=== PATIENT | female | born 1950 | race Caucasian/White ===

== ENCOUNTER → 2021-01-15 | Outpatient (CLI) | payer MEDICARE, OTHER ==
[~2021-01-15] MED LIST: ALBUTEROL1.25 MG/3 INH; CALCIUM 600 +1 EAC4 PO; CLONIDINE HCL0.3 MG PO; COZAAR100 MG PO; CRESTOR10 MG PO; FEXOFENADINE H180 MG PO; GLIPIZIDE5 MG PO; HYDROCODON-ACE1 EAC6 PO; JENTADUETO 2.51 EACH PO; LOPRESSOR50 MG PO; LYRICA150 MG PO; MECLIZINE HCL25 MG PO; NORVASC5 MG PO; PROTONIX40 MG PO; ROPINIROLE HCL1 MG PO; SEROQUEL50 MG PO; STOOL SOFTENER250 MG PO; SUCRALFATE1 GM PO; VITAMIN B12 PO; ZANAFLEX4 MG PO
== END ==
LOC: LAB 08:30
PROVIDERS: Orthopaedic Surgery
DX: Z01.812 Encounter for preprocedural laboratory examination (principal)
CPT/HCPCS: 36415; 80048; 86850; 86900; 86901

== ENCOUNTER 2021-01-16 05:19 | Day surgery (SDC) | payer MEDICARE, OTHER ==
[~2021-01-16] VITALS: Ht 157.5 cm; Wt 79.4 kg
[2021-01-17 06:52] LABS: HEMOGLOBIN 7.8 gm/dl (12.3-15.3); RED BLOOD COUNT 2.91 M/UL (4.00-5.10)
== END 2021-01-17 12:50 | disposition home or self-care (01) ==
LOC: OR 05:19 → EDSTATUS 07:30 → OR 07:30 → M/S 15:35 → OR 01-17 12:50
PROVIDERS: Orthopaedic Surgery
DX: M17.0 Bilateral primary osteoarthritis of knee (principal); D62 Acute posthemorrhagic anemia; I12.9 Hypertensive chronic kidney disease with stage 1 through stage 4 chronic kidney disease, or unspecified chronic kidney disease; E11.22 Type 2 diabetes mellitus with diabetic chronic kidney disease; N18.9 Chronic kidney disease, unspecified; E78.5 Hyperlipidemia, unspecified; J45.909 Unspecified asthma, uncomplicated; E11.40 Type 2 diabetes mellitus with diabetic neuropathy, unspecified; K21.9 Gastro-esophageal reflux disease without esophagitis; E66.01 Morbid (severe) obesity due to excess calories; Z88.6 Allergy status to analgesic agent; Z88.8 Allergy status to other drugs, medicaments and biological substances; Z91.040 Latex allergy status; Z79.84 Long term (current) use of oral hypoglycemic drugs; Z79.899 Other long term (current) drug therapy
CPT/HCPCS: 73560; 80048; 82962; 85025; 97110; 97110-GP-CQ; 97116-GP-CQ; 97162; 97165; 97535; C1713; C1776; J0171; J0690; J0735; J1650; J1885; J2001; J2250; J2270; J2704; J2795; J7030; J7120

== ENCOUNTER → 2021-08-19 | Outpatient (CLI) | payer MEDICARE, OTHER ==
[2021-08-19 14:26] LABS: HEMOGLOBIN 9.2 gm/dl (12.3-15.3); RED BLOOD COUNT 3.17 M/UL (4.00-5.10); WHITE BLOOD COUNT 5.2 K/UL (4.5-11.0)
== END ==
LOC: US 13:50
PROVIDERS: Orthopaedic Surgery
DX: I82.401 Acute embolism and thrombosis of unspecified deep veins of right lower extremity (principal); M25.561 Pain in right knee
CPT/HCPCS: 36415; 85027; 85652; 86140; 93926; 93971